=== PATIENT | male | born 2000 | race Caucasian/White ===

== ENCOUNTER 2024-08-15 20:01 | Emergency (ER) | payer OTHER ==
[~2024-08-15] VITALS: Ht 188 cm; Wt 92.9 kg
[2024-08-15 20:03] VITALS: TEMP 98.4
[2024-08-15 20:54] LABS: IONIZED CALCIUM 4.4 MG/DL (4.5-5.3)
[2024-08-15 20:56] LABS: VENOUS BASE EXCESS -2.3 (-2.0-2.0); VENOUS HCO3 23.4 MMOL/L (23.0-27.0); VENOUS O2 SATURATION 84.7 % (60.0-80.0); VENOUS PARTIAL PRESSURE CO2 43.6 mmHg (38.0-50.0); VENOUS PARTIAL PRESSURE O2 51.8 mmHg (30.0-50.0); VENOUS PH 7.348 UNITS (7.330-7.430); VENOUS STANDARD HCO3 22.2 MMOL/L; VENOUS TOTAL CO2 24.8 MMOL/L (24.0-28.0)
[2024-08-15 21:01] LABS: BASO % 0.4 % (0.0-1.0); EOS # 0.1 10^3/uL (0.0-0.5); EOS % 1.1 % (0.0-3.0); HEMOGLOBIN 15.9 g/dl (13.5-17.5); LYMPH # 2.4 10^3/uL (1.5-5.0); LYMPH % 28.7 % (24.0-44.0); MEAN CORPUSCULAR HEMOGLOBIN 32.5 pg (27.0-33.0); MEAN CORPUSCULAR HGB CONC 35.3 g/dl (32.0-36.5); MONO # 0.5 10^3/uL (0.0-0.8); MONO % 5.6 % (2.0-8.0); NEUTROPHILS # 5.2 10^3/uL (1.5-8.5); NEUTROPHILS % 63.5 % (36.0-66.0); PLATELET COUNT, AUTOMATED 228 10^3/uL (150-450); RED BLOOD COUNT 4.89 10^6/uL (4.30-6.10); WHITE BLOOD COUNT 8.2 10^3/uL (4.0-10.0)
[2024-08-15] MEDS: THIAMINE 100 MG TAB PO SCH (21:05)
[2024-08-15] MEDS: LORazepam 2 MG TAB PO PRN (21:05)
[2024-08-15 21:22] LABS: ETHYL ALCOHOL (ETHANOL) 0.292 % (0.000-0.010)
[2024-08-15 21:37] LABS: AMPHETAMINES LEVEL URINE NEGATIVE (NEGATIVE); BARBITURATES URINE NEGATIVE (NEGATIVE); BENZODIAZEPINES URINE NEGATIVE (NEGATIVE); CANNABINOIDS URINE NEGATIVE (NEGATIVE); COCAINE METABOLITE URINE NEGATIVE (NEGATIVE); METHADONE URINE NEGATIVE (NEGATIVE); OPIATES URINE NEGATIVE (NEGATIVE); PHENCYCLIDINE URINE NEGATIVE (NEGATIVE)
[2024-08-15 21:45] VITALS: BP 122/61; O2SAT 96
[2024-08-15 21:47] LABS: ALBUMIN 4.5 G/DL (3.2-5.2); ALKALINE PHOSPHATASE 66 U/L (40-129); ALT/SGPT 25 U/L (7.0-40); AST/SGOT 21 U/L (<34); BILIRUBIN,DIRECT < 0.1 MG/DL (<0.4); BILIRUBIN,TOTAL 0.3 MG/DL (0.3-1.2); BLOOD UREA NITROGEN 6 MG/DL (9-23); CALCIUM LEVEL 8.7 MG/DL (8.5-10.1); CARBON DIOXIDE LEVEL 24 MMOL/L (20-31); CHLORIDE LEVEL 111 MMOL/L (98-107); CREATININE FOR GFR 0.98 MG/DL (0.70-1.30); GLOMERULAR FILTRATION RATE > 60.0 (>60); GLUCOSE, FASTING 88 MG/DL (60-100); MAGNESIUM LEVEL 1.9 MG/DL (1.8-2.4); PHOSPHORUS LEVEL 3.3 MG/DL (2.5-4.9); SODIUM LEVEL 147 MMOL/L (136-145); TOTAL PROTEIN 7.5 G/DL (5.7-8.2)
[2024-08-15] MEDS ORDERED: OXAZ30CA2 PO (22:18)
[2024-08-16] MEDS ORDERED: MULTIVITAMINS/MINERALS THERAP 1 TAB PO SCH (09:00)
[2024-08-16] MEDS ORDERED: FOLIC ACID 1MG TAB PO SCH (09:00)
== END 2024-08-15 21:52 | disposition left against medical advice (07) ==
LOC: M ED 20:01
DX: F10.129 Alcohol abuse with intoxication, unspecified (principal); F17.200 Nicotine dependence, unspecified, uncomplicated; Z79.899 Other long term (current) drug therapy; Z53.9 Procedure and treatment not carried out, unspecified reason

== ENCOUNTER 2024-10-02 23:35 | Inpatient (IN) | payer OTHER ==
[~2024-10-02] VITALS: Ht 188 cm; Wt 90.9 kg
[~2024-10-02 23:35] MED LIST: OXAZ30CA2 PO
[2024-10-03 00:27] LABS: HEMATOCRIT 44.6 % (42.0-52.0); HEMOGLOBIN 15.2 g/dl (13.5-17.5); MEAN CORPUSCULAR HEMOGLOBIN 30.7 pg (27.0-33.0); MEAN CORPUSCULAR HGB CONC 34.1 g/dl (32.0-36.5); MEAN CORPUSCULAR VOLUME 90.1 fl (80.0-96.0); PLATELET COUNT, AUTOMATED 192 10^3/uL (150-450); RED BLOOD COUNT 4.95 10^6/uL (4.30-6.10); WHITE BLOOD COUNT 8.8 10^3/uL (4.0-10.0)
[2024-10-03 00:38] LABS: AMPHETAMINES LEVEL URINE NEGATIVE (NEGATIVE); BARBITURATES URINE NEGATIVE (NEGATIVE); BENZODIAZEPINES URINE NEGATIVE (NEGATIVE); CANNABINOIDS URINE NEGATIVE (NEGATIVE); COCAINE METABOLITE URINE NEGATIVE (NEGATIVE); PHENCYCLIDINE URINE NEGATIVE (NEGATIVE)
[2024-10-03 00:39] LABS: METHADONE URINE NEGATIVE (NEGATIVE); OPIATES URINE NEGATIVE (NEGATIVE)
[2024-10-03 00:40] LABS: ETHYL ALCOHOL (ETHANOL) 0.223 % (0.000-0.010)
[2024-10-03 00:42] LABS: ALBUMIN 4.6 G/DL (3.2-5.2); ALKALINE PHOSPHATASE 65 U/L (40-129); ALT/SGPT 19 U/L (7.0-40); AST/SGOT 18 U/L (<34); BILIRUBIN,DIRECT 0.1 MG/DL (<0.4); BILIRUBIN,TOTAL 0.3 MG/DL (0.3-1.2); BLOOD UREA NITROGEN 15 MG/DL (9-23); CALCIUM LEVEL 8.7 MG/DL (8.5-10.1); CARBON DIOXIDE LEVEL 27 MMOL/L (20-31); CHLORIDE LEVEL 102 MMOL/L (98-107); CREATININE FOR GFR 1.03 MG/DL (0.70-1.30); GLOMERULAR FILTRATION RATE > 90.0 (>60); GLUCOSE, FASTING 100 MG/DL (60-100); POTASSIUM SERUM 3.8 MMOL/L (3.5-5.1); SALICYLATE LEVEL < 3.0 MG/DL (<30); SODIUM LEVEL 140 MMOL/L (136-145); TOTAL PROTEIN 7.4 G/DL (5.7-8.2)
[2024-10-03] MEDS: MULTIVITAMINS/MINERALS THERAP 1 TAB PO SCH (09:11)
[2024-10-03] MEDS: FOLIC ACID 1MG TAB PO SCH (09:11)
[2024-10-03] MEDS: THIAMINE 100 MG TAB PO SCH ×2 (09:11→20:21)
[2024-10-03] MEDS: LORazepam 2 MG TAB PO PRN (09:12)
[2024-10-03] MEDS ORDERED: MELO15TA28 PO (09:56)
[2024-10-03] MEDS ORDERED: MULT-90 PO (09:56)
[2024-10-03] MEDS ORDERED: SERT25TA21 PO (09:56)
[2024-10-03] MEDS ORDERED: RAME8TAB2 PO (09:56)
[2024-10-03] MEDS ORDERED: HOME MED LIST COMPLETE! XX SCH (10:00)
[2024-10-03] MEDS: SERTRALINE HCL 25 MG TABLET PO SCH (10:41)
[2024-10-03] MEDS: ACETAMINOPHEN 325 MG TAB PO ONE (10:43)
[2024-10-03] MEDS ORDERED: MAALOX 30 ML SUSP *UDC PO PRN (11:05)
[2024-10-03] MEDS ORDERED: OLANZapine 5 MG TAB PO PRN (11:05)
[2024-10-03] MEDS ORDERED: LORazepam 1 MG TAB PO PRN (11:05)
[2024-10-03] MEDS ORDERED: ACETAMINOPHEN 325 MG TAB PO PRN (11:05)
[2024-10-03] MEDS ORDERED: MOM 30ML SUSPENSION UDC PO PRN (11:05)
[2024-10-03] MEDS: MELOXICAM (MOBIC) 7.5 MG TAB PO SCH (11:59)
[2024-10-03] MEDS: NICOTINE 14 MG/24 HR TRANSDERMAL TD SCH (12:04)
[2024-10-03] MEDS ORDERED: LORazepam 2 MG TAB PO PRN (12:20)
[2024-10-03 14:45] VITALS: BP 136/63
[2024-10-03 14:47] VITALS: BP 136/63; TEMP 97.9; O2SAT 98
[2024-10-03] MEDS: chlordiazePOXIDE 25 MG CAP PO SCH (15:25)
[2024-10-03] MEDS: traZODone 50 MG TAB PO PRN (20:20)
[2024-10-03] MEDS: diphenhydrAMINE 25MG CAP PO PRN (20:22)
[2024-10-03] MEDS ORDERED: RAMELTEON 8 MG TAB (ROZEREM) PO SCH (21:00)
[2024-10-03 22:00] VITALS: BP 124/58
[2024-10-04 06:00] VITALS: BP 126/58; TEMP 97.3; O2SAT 97
[2024-10-04] MEDS: FOLIC ACID 1MG TAB PO SCH (08:23)
[2024-10-04] MEDS: MULTIVITAMINS/MINERALS THERAP 1 TAB PO SCH (08:24)
[2024-10-04] MEDS: SERTRALINE HCL 25 MG TABLET PO SCH (12:56)
[2024-10-04] MEDS: NALTREXONE 50 MG TAB PO SCH (12:56)
[2024-10-04 15:00] VITALS: BP 126/58
[2024-10-04 15:03] VITALS: BP 135/66; TEMP 98.2; O2SAT 96
[2024-10-04] MEDS: MELOXICAM (MOBIC) 7.5 MG TAB PO SCH (20:39)
[2024-10-04] MEDS: RAMELTEON 8 MG TAB (ROZEREM) PO SCH (20:39)
[2024-10-04 22:00] VITALS: BP 132/79
[2024-10-05 06:00] VITALS: BP 115/53; TEMP 97; O2SAT 97
[2024-10-05] MEDS ORDERED: THIA100TA PO (09:02)
[2024-10-05] MEDS ORDERED: NALT50TA4 PO (09:02)
== END 2024-10-05 10:05 | disposition home or self-care (01) | DRG 881 ==
LOC: EDBD 23:35 → M ED 23:35 → M ED INP 10-03 11:05 → M PSY 10-03 14:42
PROVIDERS: ADMIT Internal Medicine; ATTEND Internal Medicine
DX: F32.A Depression, unspecified (principal); R45.851 Suicidal ideations; F43.10 Post-traumatic stress disorder, unspecified; F10.10 Alcohol abuse, uncomplicated; Z91.82 Personal history of military deployment; Z79.899 Other long term (current) drug therapy